=== PATIENT | male | born 1975 ===

== ENCOUNTER 2018-07-23 00:31 | Emergency (ER) | payer OTHER ==
[2018-07-23 00:52] VITALS: O2SAT 99
--- NOTE | 2018-07-23 01:14 | ED PDOC ---
HPI: Abdomen Time Seen by Provider: 07/23/18 00:45 Chief Complaint (Nursing): Abdominal Pain History Per: [facility], [facility]: Kevin [id number]) History/Exam Limitations: no limitations Onset/Duration Of Symptoms: Days Current Symptoms Are (Timing): Still Present Location Of Pain/Discomfort: RUQ Associated Symptoms: Nausea. denies: Fever, Chills, Vomiting, Diarrhea Exacerbating Factors: Food Additional Complaint(s): Patient with no PMHx presenting with abdominal pain, states it started 2 days ago, intermittently, worsened today after eating dinner. Associated with nausea, no vomiting, no fevers, no abnormal stools or urinary symptoms. Denies abdominal surgeries. PMD: None Past Medical History Reviewed: Historical Data, Nursing Documentation, Vital Signs Vital Signs: Last Vital Signs Temp 98.7 F 07/23/18 00:40 Pulse 52 L 07/23/18 00:40 Resp 16 07/23/18 00:40 BP 152/91 H 07/23/18 00:40 Pulse Ox 99 07/23/18 00:40 - Medical History PMH: No Chronic Diseases - Surgical History Surgical History: No Surg Hx - Family History Family History: States: Unknown Family Hx - Home Medications Home Medications: Ambulatory Orders Medication Instructions Recorded Simethicone [Gas Relief 80] 80 mg PO DAILY #12 ctb 07/23/18 - Allergies Allergies/Adverse Reactions: Allergies Allergy/AdvReac Type Severity Reaction Status Date / Time No Known Allergies Allergy Verified 07/23/18 00:53 Review of Systems ROS Statement: Except As Marked, All Systems Reviewed And Found Negative Gastrointestinal: Positive for: Nausea, Abdominal Pain Physical Exam - Reviewed Nursing Documentation Reviewed: Yes Vital Signs Reviewed: Yes - Physical Exam Appears: Positive for: Well, Non-toxic, No Acute Distress Head Exam: Positive for: ATRAUMATIC, NORMAL INSPECTION, NORMOCEPHALIC Skin: Positive for: Normal Color, Warm, DRY Eye Exam: Positive for: EOMI, Normal appearance, PERRL ENT: Positive for: Normal ENT Inspection Neck: Positive for: Normal, Painless ROM Cardiovascular/Chest: Positive for: Regular Rate, Rhythm Respiratory: Positive for: CNT, Normal Breath Sounds Gastrointestinal/Abdominal: Positive for: Normal Exam, Soft, Tenderness (RUQ tenderness, +Anderson's). Negative for: Organomegaly, Mass, Distended, Guarding Back: Positive for: Normal Inspection Extremity: Positive for: Normal ROM Neurologic/Psych: Positive for: Alert, Oriented - Laboratory Results Result Diagrams: 07/23/18 01:21 07/23/18 01:21 - ECG O2 Sat by Pulse Oximetry: 99 Pulse Ox Interpretation: Normal Medical Decision Making Medical Decision MakinAM Patient presenting with abdominal pain x 2 days --Well appearing, normal vitals --RUQ tenderness --DDx: gallstones, cholecystitis, gastritis, hepatitis, pancreatitis, others not listed --Will get labs, U/S, give NSAID and re-eval 430AM --U/S negative, bloodwork negative --Patient states he's feeling significantly better --Advised diet modifcation and simethicone --Will give referral to [facility] --Patient very well appearing upon discharge Disposition - Clinical Impression Clinical Impression: Abdominal pain, Gas pain - Patient ED Disposition Is Patient to be Admitted: No - Disposition [facility]errals: [facility] Disposition: Routine/Home Disposition Time: 04:51 Condition: STABLE Prescriptions: Simethicone [Gas Relief 80] 80 mg PO DAILY #12 ctb Instructions: Gas and Bloating, Stomach Ache and Stomach Upset Forms: [employer] (Citizen Of [place]) Print Language: TELUGU
[2018-07-23 01:26] LABS: HEMOGLOBIN 14.2 g/dL (12.0-18.0); MEAN CELL VOLUME 90.2 fl (80.0-94.0); MEAN CORPUSCULAR HEMOGLOBIN 30.9 pg (27.0-31.0); MEAN CORPUSCULAR HGB CONC 34.2 g/dL (33.0-37.0); RBC 4.6 Mil/uL (4.40-5.90); RED CELL DISTRIBUTION WIDTH 13.5 % (11.5-14.5); WHITE BLOOD COUNT 9.1 K/uL (4.8-10.8)
[2018-07-23 01:32] LABS: ALB/GLOB RATIO 1.2 (1.0-2.1); ALBUMIN 4.7 g/dL (3.5-5.0); ALT/SGPT 39 U/L (21-72); AST/SGOT 29 U/L (17-59); BILIRUBIN,DIRECT 0.2 mg/ml (0.0-0.4); BLOOD UREA NITROGEN 21 mg/dl (9-20); CALCIUM 9.9 mg/dL (8.4-10.2); GFR NON-AFRICAN AMERICAN > 60; LIPASE 291 U/L (23-300)
[2018-07-23] MEDS ORDERED: Alum-Mag Hydrox-Simethicone Susp (30 mL) PO ONE (04:55)
[2018-07-23] MEDS ORDERED: Alum-Mag Hydrox-Simethicone Susp (30 mL) ONE (04:57)
[2018-07-23 05:13] VITALS: BP 128/84; PULSE 62; RESP 18; TEMP 99.1
--- NOTE | 2018-07-23 09:52 | US ---
Date of service: 07/23/2018 HISTORY: RUQ pain COMPARISON: None. TECHNIQUE: Sonographic evaluation of the right upper quadrant of the abdomen. FINDINGS: LIVER: Measures 13.6 cm in length. Normal echogenicity of the liver parenchyma. No mass. No intrahepatic bile duct dilatation. GALLBLADDER: Unremarkable. No gallstones. COMMON BILE DUCT: Measures 4 mm. No stones. No dilatation. PANCREAS: Limited visualization due to overlying bowel gas. RIGHT KIDNEY: Measures 11.6 cm in length. Normal echogenicity. No calculus, mass, or hydronephrosis. AORTA: No aneurysmal dilatation. IVC: Unremarkable. OTHER FINDINGS: None . IMPRESSION: Unremarkable examination. No evidence of cholelithiasis or cholecystitis. The preliminary findings for this examination were reported by [facility] at 4:30 a.m. on 07/23/2018. There is concurrence of this report with the preliminary findings.
== END 2018-07-23 04:50 | disposition home or self-care (01) ==
LOC: H.ER 00:31
DX: R10.11 Right upper quadrant pain (principal); R14.1 Gas pain
CPT/HCPCS: 76705; 80048; 80076; 83690; 85027; 87040; 96374; 99283; J1885